=== PATIENT | male | born 1970 | race Caucasian/White ===

== ENCOUNTER 2016-08-28 05:53 | Day surgery (SDC) | payer MEDICARE, OTHER ==
--- NOTE | ~2016-08-28 | EGD ---
EGD REPORT [facility] [address] [id number] NAME: OTTO WEST : [birth year] STATUS : REG [facility] PAT#: [id number] AGE: 46 ADM/REG DATE : 08/28/16 MR#: [id number] REPORT SERV DATE: 08/28/16 DICTATED BY: PETRA CARLOS DATE: 08/28/16 REPORT STATUS : Draft [facility] DATE: 08/28/16 Endoscopy Center Patient Name: Otto West Date of : 1970 Attending MD: PETRA CARLOS MD Procedure Date No Time: 08/28/2016 Procedure: Upper GI endoscopy Indications: Dysphagia, Heartburn, Esophageal reflux Medicines: Monitored Anesthesia Care Complications: No immediate complications. Procedure: Pre-Anesthesia Assessment: - ASA Grade Assessment: III - A patient with severe systemic disease. After obtaining informed consent, the endoscope was passed under direct vision. Throughout the procedure, the patient's blood pressure, pulse, and oxygen saturations were monitored continuously. The GIF [id number] was introduced through the mouth, and advanced to the second part of duodenum. The upper GI endoscopy was accomplished without difficulty. The patient tolerated the procedure well. Findings: LA Grade C (one or more mucosal breaks continuous between tops of 2 or more mucosal folds, less than 75% circumference) esophagitis with no bleeding was found in the lower third of the esophagus. There was erythema and ulcerations. Biopsies were taken with a cold forceps for histology. A medium amount of food (residue) was found in the gastric body. The duodenal bulb and 2nd part of the duodenum were normal. The cardia and gastric fundus were normal on retroflexion. Impression: - LA Grade C reflux esophagitis. Biopsied. - A medium amount of food (residue) in the stomach. - Normal duodenal bulb and 2nd part of the duodenum. Recommendation: - Patient has a contact number available for emergencies. The signs and symptoms of potential delayed complications were discussed with the patient. Return to normal activities tomorrow. Written discharge instructions were provided to the patient. - Regular diet. - Continue present medications. - Use Prilosec (omeprazole) 40 mg PO daily. - Follow an antireflux regimen. EGD REPORT [address] [address] NAME: OTTO WEST : [birth year] STATUS : REG [facility] PAT#: [id number] AGE: 46 ADM/REG DATE : 08/28/16 MR#: [id number] REPORT SERV DATE: 08/28/16 DICTATED BY: PETRA CARLOS DATE: 08/28/16 REPORT STATUS : Draft TRANSCRIBED BY: [employer] DATE: 08/28/16 - Do a gastric emptying study at the next available appointment. - Repeat the upper endoscopy in 2 months to check healing. - Await pathology results. Procedure Code(s): --- Professional --- 60817, Esophagogastroduodenoscopy, flexible, transoral; with biopsy, single or multiple Diagnosis Code(s): --- Professional --- K21.0, Gastro-esophageal reflux disease with esophagitis R13.10, Dysphagia, unspecified R12, Heartburn CPT copyright 2013 [employer]. All rights reserved. The codes documented in this report are preliminary and upon security alarm installer review may be revised to meet current compliance requirements. PETRA CARLOS MD 08/28/2016 7:31 AM This report has been signed electronically. Number of Addenda: 0 Note Initiated On: 08/28/2016 7:02 AM Scope Withdrawal Time 0 hours 0 minutes 0 seconds [id number] [id number]
[~2016-08-28 05:53] MED LIST: ASA5GR PO; COMP10B PO; CYMBALTA60 PO; FLEX PO; GLEEVEC400 MG PO; GOODYS PM1 POW OR; MIRALAX POWDER1 PKT PO; NEUR300 PO; NOR75 PO; OPANA ER10 MG PO; OXYCONTIN60 MG PO; PCET PO; REMERON30 MG PO; ROXICODONE30 MG PO; SEROQUEL50 MG PO; STOOL SOFTENER OTC PO; ZANAFLEX2 MG PO; ZOL100 PO
[2016-11-19] MEDS ORDERED: K500 PO (16:05)
[2016-11-19] MEDS ORDERED: COMP5B PO (16:07)
[2016-11-19] MEDS ORDERED: REMERON30 MG PO (16:08)
[2016-11-19] MEDS ORDERED: ASABAYER PO (16:09)
[2016-11-19] MEDS ORDERED: PRILO PO (16:10)
[2016-11-19] MEDS ORDERED: GLEEVEC400 MG PO (16:10)
[2016-11-21] MEDS ORDERED: ROXICODONE30 MG PO (14:46)
[2017-01-08] MEDS ORDERED: OXYCONTIN60 MG PO (17:03)
[2017-01-08] MEDS ORDERED: TASIGNA150 MG PO (17:03)
[2017-01-08] MEDS ORDERED: NEUR300 PO (17:03)
[2017-01-08] MEDS ORDERED: ROXICODONE30 MG PO (17:03)
== END 2016-08-28 23:59 | disposition home or self-care (01) ==
LOC: DMU 05:53
PROVIDERS: Internal Medicine Gastroenterology
PROC: 0DB58ZX Excision of Esophagus, Via Natural or Artificial Opening Endoscopic, Diagnostic (ICD-10-PCS; principal; 2016-08-28 14:30)
DX: K21.0 Gastro-esophageal reflux disease with esophagitis (principal); F17.210 Nicotine dependence, cigarettes, uncomplicated; G89.29 Other chronic pain; I73.9 Peripheral vascular disease, unspecified; F43.10 Post-traumatic stress disorder, unspecified; Z88.5 Allergy status to narcotic agent
CPT/HCPCS: 88305